=== PATIENT | male | born 1945 | race Two or more races ===

== ENCOUNTER → 2020-07-24 | Outpatient (CLI) | payer MEDICARE ==
[~2020-07-24] MED LIST: MULT-658 PO; TAMS-11 PO; VIT1TABL32 PO; allopurinol PO; amlodipine PO; lisinopril PO
== END | disposition home or self-care (01) ==
LOC: STAR 10:03
PROVIDERS: ATTEND Student in an Organized Health Care Education/Training Program
DX: Z01.818 Encounter for other preprocedural examination (principal); N40.1 Benign prostatic hyperplasia with lower urinary tract symptoms; R94.31 Abnormal electrocardiogram [ECG] [EKG]; Z20.828 Contact with and (suspected) exposure to other viral communicable diseases
CPT/HCPCS: 87635; 93005

== ENCOUNTER 2020-07-30 12:28 | Day surgery (SDC) | payer MEDICARE ==
[~2020-07-30] VITALS: Ht 175.3 cm; Wt 93.0 kg
[2020-07-30] MEDS ORDERED: LACTATED RINGERS 1,000 ML IV SCH (13:00)
[2020-07-30] MEDS ORDERED: CHLORHEXIDINE 15 ML UDC MM ONE (13:00)
[2020-07-30] MEDS ORDERED: AMLO-150 PO (13:20)
[2020-07-30] MEDS ORDERED: LISI-170 PO (13:21)
[2020-07-30] MEDS ORDERED: ALLO100T30 PO (13:22)
[2020-07-30] MEDS ORDERED: CHOL10003 PO (13:23)
[2020-07-30] MEDS ORDERED: FENTANYL PF 250 MCG/5ML ONE (14:45)
[2020-07-30] MEDS ORDERED: MIDAZOLAM 1 MG/ML, 2ML ONE (14:45)
[2020-07-30] MEDS ORDERED: PROPOFOL 10 MG/ML, 20ML ONE (14:46)
[2020-07-30] MEDS ORDERED: ONDANSETRON 2MG/ML, 2ML ONE (14:46)
[2020-07-30] MEDS ORDERED: DEXAMETHASONE 4 MG/ML, 1ML ONE (14:46)
[2020-07-30] MEDS ORDERED: CEFAZOLIN 1,000 MG ONE ×2 (14:46)
[2020-07-30] MEDS ORDERED: SUCCINYLCHOLINE 20 MG/ML, 10ML ONE (14:46)
[2020-07-30] MEDS ORDERED: FENTANYL PF 100 MCG/2ML IV PRN (16:00)
[2020-07-30] MEDS ORDERED: PROMETHAZINE 25 MG/ML, 1ML IVPush PRN (16:00)
[2020-07-30] MEDS ORDERED: hydrALAzine 20 MG/ML, 1ML IV PRN (16:00)
[2020-07-30] MEDS ORDERED: ONDANSETRON 2MG/ML, 2ML IVPush PRN (16:00)
[2020-07-30] MEDS ORDERED: LABETALOL 5MG/ML, 20ML IV PRN (16:00)
[2020-07-30] MEDS ORDERED: HYDROmorphone 1 MG/ML, 1ML INJ IVPush PRN (16:00)
[2020-07-30] MEDS ORDERED: ACETAMINOPHEN 325 MG TABLET PO PRN (16:00)
[2020-07-30] MEDS ORDERED: OXYcodone 5 MG/5 ML ORAL.SOL UDC PO PRN (16:00)
== END 2020-07-30 20:35 | disposition home or self-care (01) ==
LOC: OUT 12:28
PROVIDERS: ATTEND Student in an Organized Health Care Education/Training Program
DX: N40.1 Benign prostatic hyperplasia with lower urinary tract symptoms (principal); N39.41 Urge incontinence; N32.89 Other specified disorders of bladder; I10 Essential (primary) hypertension; E78.5 Hyperlipidemia, unspecified; M10.9 Gout, unspecified; Z79.899 Other long term (current) drug therapy; Z87.891 Personal history of nicotine dependence; Z98.890 Other specified postprocedural states; Z82.49 Family history of ischemic heart disease and other diseases of the circulatory system
CPT/HCPCS: 52648; 82962; J0330; J0690; J1100; J2250; J2405; J2704; J3010; J7120